=== PATIENT | male | born 2000 | race Caucasian/White ===

== ENCOUNTER 2019-02-24 01:13 | Emergency (ER) | payer MEDICAID ==
[~2019-02-24] VITALS: Ht 165.1 cm; Wt 71.7 kg
[2019-02-24 01:20] VITALS: BP 126/73
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
[2019-02-24 03:19] VITALS: BP 110/74
--- NOTE | 2019-02-24 03:24 | NUR ---
PT ASLEEP, EASILY AROUSABLE. VSS AT THIS TIME. GCS 15. SPEECH CLEAR. PERRL PRESENT. BEHAVIOR APPROPIATE FOR SITUATION. WILL CONTINUE TO MONITOR.
--- NOTE | 2019-02-24 03:40 | NUR ---
[place] [employer] AT BEDSIDE.
--- NOTE | 2019-02-24 04:08 | NUR ---
DR. SOMMERS BEDSIDE EVALUATING PT
[2019-02-24] MEDS ORDERED: KETOROLAC 60 MG/2 ML VIAL IM ONE (04:15)
== END 2019-02-24 04:38 | disposition home or self-care (01) ==
LOC: MED 01:13
DX: S00.03XA Contusion of scalp, initial encounter (principal); W18.39XA Other fall on same level, initial encounter; Y93.01 Activity, walking, marching and hiking; Y92.89 Other specified places as the place of occurrence of the external cause; Y99.8 Other external cause status
CPT/HCPCS: 96372; 99283; J1885

== ENCOUNTER 2019-03-07 10:48 | Emergency (ER) | payer MEDICAID ==
[~2019-03-07] VITALS: Ht 165.1 cm; Wt 74.4 kg
[2019-03-07 10:55] VITALS: BP 138/51
--- NOTE | 2019-03-07 11:02 | NUR ---
PT AMBULATED TO ED BED 08
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
[2019-03-07] MEDS ORDERED: LIDOCAINE 1% 500 MG/50 ML VIAL INJ SCH (11:30)
[2019-03-07] MEDS ORDERED: LIDOCAINE MPF 1% - 5 mL VIAL 10 ML ONE (11:44)
--- NOTE | 2019-03-07 11:50 | NUR ---
[employer] AT BEDSIDE
[2019-03-07 12:23] VITALS: BP 116/68
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
== END 2019-03-07 12:23 | disposition home or self-care (01) ==
LOC: MED 10:48
DX: S61.211A Laceration without foreign body of left index finger without damage to nail, initial encounter (principal); W45.8XXA Other foreign body or object entering through skin, initial encounter; Y93.89 Activity, other specified; Y92.89 Other specified places as the place of occurrence of the external cause; Y99.0 Civilian activity done for income or pay
CPT/HCPCS: 12001; 90471; 90715; 99283; J2001

== ENCOUNTER 2021-11-29 22:57 | Emergency (ER) | payer MEDICAID, OTHER ==
[~2021-11-29] VITALS: Ht 167.6 cm; Wt 81.6 kg
[2021-11-29 22:59] VITALS: BP 113/76
[2021-11-29] MEDS ORDERED: FLUORESCEIN OPTH STRIP 1 MG OP ONE (23:15)
[2021-11-29] MEDS ORDERED: FLUORESCEIN OPTH STRIP 1 MG ONE (23:15)
[2021-11-29] MEDS ORDERED: IBUP-2213 PO (23:30)
[2021-11-29] MEDS ORDERED: IBUPROFEN 800 MG TAB PO ONE (23:35)
[2021-11-30] VITALS: BP 113/76
[2021-11-30] MEDS ORDERED: IBUP-2213 PO ×2 (15:46→16:08)
[2021-11-30] MEDS ORDERED: ACET-10509 PO ×2 (15:46→16:08)
[2021-11-30] MEDS ORDERED: OXYM20SP1 NS ×2 (15:46→16:08)
== END 2021-11-30 | disposition home or self-care (01) ==
LOC: MED 22:57
DX: S01.111A Laceration without foreign body of right eyelid and periocular area, initial encounter (principal); W50.0XXA Accidental hit or strike by another person, initial encounter; Y93.89 Activity, other specified; Y92.89 Other specified places as the place of occurrence of the external cause; Y99.8 Other external cause status
CPT/HCPCS: 99283

== ENCOUNTER 2021-11-30 14:19 | Emergency (ER) | payer OTHER ==
[~2021-11-30] VITALS: Ht 165.1 cm; Wt 69.4 kg
[~2021-11-30 14:19] MED LIST: IBUP-2213 PO
[2021-11-30 14:32] VITALS: BP 151/88
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
[2021-11-30] MEDS: FLUORESCEIN OPTH STRIP 1 MG OP ONE (14:50)
--- NOTE | 2021-11-30 14:58 | NUR ---
PT TAKEN TO CT VIA W/C
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
[2021-11-30] MEDS: diazePAM 5 MG TAB PO ONE (15:35)
[2021-11-30] MEDS: CLONIDINE HYDROCHLORIDE 0.1 MG TAB PO ONE (15:35)
[2021-11-30] MEDS: ONDANSETRON 4 MG ODT PO ONE (15:36)
[2021-11-30] MEDS ORDERED: OXYM20SP1 NS ×2 (15:46→16:08)
[2021-11-30] MEDS ORDERED: IBUP-2213 PO ×2 (15:46→16:08)
[2021-11-30] MEDS ORDERED: ACET-10509 PO ×2 (15:46→16:08)
[2021-11-30 16:08] VITALS: BP 126/69
--- NOTE | 2021-11-30 16:09 | NUR ---
Patient discharged with v/s stable. Written and verbal after care instructions given and explained. Patient alert, oriented and verbalized understanding of instructions. Ambulatory with steady gait. All questions addressed prior to discharge. ID band removed. Patient advised to follow up with PMD. Rx of ACETAMINOPHEN, IBUPROFEN,AFRIN WERE given. Patient educated on indication of medication including possible reaction and side effects. Opportunity to ask questions provided and answered.
== END 2021-11-30 16:09 | disposition home or self-care (01) ==
LOC: MED 14:19
DX: S02.31XA Fracture of orbital floor, right side, initial encounter for closed fracture (principal); F11.23 Opioid dependence with withdrawal; Y04.8XXA Assault by other bodily force, initial encounter; Y93.89 Activity, other specified; Y92.89 Other specified places as the place of occurrence of the external cause; Y99.8 Other external cause status
CPT/HCPCS: 70450; 70486; 99284; Q0162

== ENCOUNTER 2023-05-19 17:24 | Emergency (ER) | payer OTHER ==
[~2023-05-19] VITALS: Ht 165.1 cm; Wt 85.4 kg
[~2023-05-19 17:24] MED LIST changes: +ACET-10509 PO; +OXYM20SP1 NS
[2023-05-19 17:41] VITALS: BP 118/65; PULSE 79; RESP 20; TEMP 98; O2SAT 95
[2023-05-19] MEDS: LIDOCAINE MPF 1% 10 MG/ML VIAL INJ ONE (18:15)
[2023-05-19] MEDS ORDERED: IBUP-2213 PO (19:12)
[2023-05-19] MEDS ORDERED: CEPH-588 PO (19:12)
[2023-05-19 20:03] VITALS: BP 132/78; PULSE 88; RESP 16; TEMP 98.3; O2SAT 98
== END 2023-05-19 20:00 | disposition home or self-care (01) ==
LOC: MED 17:24
DX: L60.0 Ingrowing nail (principal); Z79.899 Other long term (current) drug therapy
CPT/HCPCS: 11730; 99284; J2001

== ENCOUNTER 2023-05-27 16:07 | Emergency (ER) | payer OTHER ==
[~2023-05-27] VITALS: Ht 165.1 cm; Wt 86.2 kg
[~2023-05-27 16:07] MED LIST changes: +CEPH-588 PO
[2023-05-27 16:14] VITALS: BP 127/62; PULSE 83; RESP 16; TEMP 97.1; O2SAT 97
== END 2023-05-27 16:51 | disposition home or self-care (01) ==
LOC: MED 16:07
DX: L60.0 Ingrowing nail (principal); Z79.899 Other long term (current) drug therapy
CPT/HCPCS: 99281

== ENCOUNTER 2023-06-26 19:58 | Emergency (ER) | payer OTHER ==
[~2023-06-26] VITALS: Ht 165.1 cm; Wt 90.7 kg
[2023-06-26 20:22] VITALS: BP 123/72; PULSE 88; RESP 17; TEMP 98.2; O2SAT 98
[2023-06-26 22:20] VITALS: BP 123/72; PULSE 88; RESP 17; TEMP 98.2; O2SAT 98
[2023-06-27] MEDS ORDERED: AMOX1TAB8 PO (18:58)
== END 2023-06-26 22:20 | disposition left against medical advice (07) ==
LOC: MED 19:58
DX: S70.371A Other superficial bite of right thigh, initial encounter (principal); Z53.21 Procedure and treatment not carried out due to patient leaving prior to being seen by health care provider; W54.0XXA Bitten by dog, initial encounter; Y93.89 Activity, other specified; Y92.89 Other specified places as the place of occurrence of the external cause; Y99.8 Other external cause status
CPT/HCPCS: 90715; 99281

== ENCOUNTER 2023-06-27 18:12 | Emergency (ER) | payer OTHER ==
[~2023-06-27] VITALS: Ht 167.6 cm; Wt 81.6 kg
[2023-06-27 18:42] VITALS: BP 147/76; PULSE 84; RESP 18; TEMP 97.6; O2SAT 98
[2023-06-27] MEDS ORDERED: AMOX1TAB8 PO (18:58)
[2023-06-27 19:16] VITALS: BP 147/76; PULSE 84; RESP 18; TEMP 97.6; O2SAT 98
== END 2023-06-27 19:17 | disposition home or self-care (01) ==
LOC: MED 18:12
DX: S71.132A Puncture wound without foreign body, left thigh, initial encounter (principal); W54.0XXA Bitten by dog, initial encounter; Y93.89 Activity, other specified; Y92.89 Other specified places as the place of occurrence of the external cause; Y99.8 Other external cause status
CPT/HCPCS: 90471; 90715; 99283